=== PATIENT | male | born 1960 | race American Indian/Alaskan Native ===

== ENCOUNTER 2022-07-17 07:42 | Outpatient (CLI) | payer OTHER ==
--- NOTE | 2022-07-17 09:13 | Cat Scan Report ---
CT ABDOMEN AND PELVIS WITHOUT CONTRAST INDICATION / CLINICAL INFORMATION: C61. Initial staging of prostate cancer TECHNIQUE: Axial CT images were obtained through the abdomen and pelvis without IV contrast. Sagittal and rossi l reformatted images. All CT scans at this location are performed using CT dose reduction for ALARA b y means of automated exposure control. COMPARISON: None available. FINDINGS: LOWER CHEST: No significant abnormality. LIVER: No significant abnormality. GALLBLADDER: No significant abnormality. BILE DUCTS: No significant abnormality. PANCREAS: No significant abnormality. SPLEEN: No significant abnormality. ADRENALS: No significant abnormality. RIGHT KIDNEY and URETER: No significant abnormality. LEFT KIDNEY and URETER: No significant abnormality. STOMACH and SMALL BOWEL: No significant abnormality. COLON: No significant abnormality. APPENDIX: No significant abnormality. PERITONEUM: No free fluid. No free air. No fluid collection. LYMPH NODES: No significant adenopathy. AORTA and ARTERIES: Mild atherosclerotic disease in the abdominal aorta and common iliac arteries wit hout acute abnormality. IVC and VEINS: No significant abnormality. URINARY BLADDER: No significant abnormality. REPRODUCTIVE ORGANS: The prostate gland measures 4.8 cm in diameter. ADDITIONAL FINDINGS: None. SKELETAL SYSTEM: No suspicious bony lesion is detected. IMPRESSION: No significant abnormality. No evidence for metastatic disease. Signer Name: Glen Montgomery Jr, MD Signed: 07/17/2022 9:09 AM Workstation Name: [id number]
--- NOTE | 2022-07-17 12:42 | Nuclear Medicine Report ---
NM bone scan whole body INDICATION / CLINICAL INFORMATION: Restaging prostate cancer. TRACER: F-18 FDG 26.5 mCi IV injection. COMPARISON: CT abdomen and pelvis performed earlier the same day. FINDINGS: Physiologic tracer uptake is seen. Mild increased uptake at the AC joints, sternoclavicular joints an d knees is typical of DJD. No suspicious uptake to suggest metastatic disease. IMPRESSION: Negative for metastatic disease. Signer Name: Hernan Minaya MD Signed: 07/17/2022 12:38 PM Workstation Name: [id number]
== END 2022-07-17 07:43 | disposition home or self-care (01) ==
LOC: NM 07:42
PROVIDERS: ATTEND Urology
DX: C61 Malignant neoplasm of prostate (principal); I70.0 Atherosclerosis of aorta
CPT/HCPCS: 74176; 78306; A9503